=== PATIENT | male | born 1955 | race Caucasian/White ===

== ENCOUNTER 2016-12-23 12:41 | Emergency (ER) | payer MEDICARE, MEDICAID ==
[~2016-12-23] VITALS: Ht 175.3 cm; Wt 76.4 kg
[~2016-12-23 12:41] MED LIST: AMOX1TAB16 PO; RISPC50 IM; VITAD400 PO
[2016-12-23 16:05] LABS: BASOPHILS # (AUTO) 0.05 K/uL (0.00-0.20); BASOPHILS % (AUTO) 0.7 % (0.0-2.0); EOSINOPHILS # (AUTO) 0.28 K/uL (0.00-0.70); EOSINOPHILS % (AUTO) 3.68 % (1.0-6.0); HEMATOCRIT 42.4 % (41-53); HEMOGLOBIN 14.1 g/dL (13.5-17.5); LYMPHOCYTES # (AUTO) 1.1 K/uL (1.0-4.8); LYMPHOCYTES % (AUTO) 15.3 % (22.0-44.0); MEAN CORPUSCULAR HEMOGLOBIN 30.7 pg (26.0-34.0); MEAN CORPUSCULAR HGB CONC 33.2 G/dL (31.0-37.0); MEAN CORPUSCULAR VOLUME 92 fL (80-100); MONOCYTES # (AUTO) 0.4 K/uL (0.1-1.0); MONOCYTES % (AUTO) 5.4 % (2.0-9.0); NEUTROPHILS # (AUTO) 5.6 K/uL (1.8-7.7); NEUTROPHILS % (AUTO) 74.9 % (40.0-70.0); PLATELET COUNT (AUTO) 214 K/uL (150-450); RED BLOOD CELL COUNT(AUTO) 4.59 MIL/uL (4.50-5.90); RED CELL DISTRIBUTION WIDTH 14.6 % (11.5-14.5); WHITE BLOOD COUNT (AUTO) 7.5 K/uL (4.5-11.0)
[2016-12-23 16:36] LABS: ANION GAP 9 mmol/L (8-16); CALCIUM, TOTAL 8.7 mg/dL (8.8-10.5); CARBON DIOXIDE 27 mmol/L (22-29); CHLORIDE 104 mmol/L (98-107); CREATININE 0.94 mg/dL (0.60-1.30); GLOMERULAR FILTR. RATE CALC > 60 mL/min (>60); POTASSIUM 4.3 mmol/L (3.5-5.1); SODIUM SERUM 140 mmol/L (136-145); UREA NITROGEN, BLOOD 11 mg/dL (7-18)
[2016-12-23 17:05] LABS: ALANINE AMINOTRANSFERASE 47 U/L (12-78); ALBUMIN 3.6 g/dL (3.4-5.0); ASPARTATE AMINOTRANSFERASE 41 U/L (15-37); BILIRUBIN,TOTAL 0.3 mg/dL (0.1-1.0); TOTAL PROTEIN, SERUM 7.2 g/dL (6.4-8.2)
[2016-12-23] MEDS ORDERED: RisperiDONE MICROSPHERES 37.5 MG/2 ML SYRINGE IM ONE (19:45)
[2016-12-23 20:00] VITALS: BP 109/65
== END 2016-12-23 20:02 | disposition home or self-care (01) ==
LOC: EMS 12:44
DX: F20.9 Schizophrenia, unspecified (principal); F17.210 Nicotine dependence, cigarettes, uncomplicated; Z88.1 Allergy status to other antibiotic agents
CPT/HCPCS: 36415; 80053; 80307; 85025; 96372; 99284; G0480; J2794

== ENCOUNTER 2017-06-28 09:31 | Emergency (ER) | payer MEDICARE, MEDICAID ==
[~2017-06-28] VITALS: Ht 175.3 cm; Wt 77.1 kg
[~2017-06-28 09:31] MED LIST changes: -AMOX1TAB16 PO
[2017-06-28] MEDS ORDERED: RisperiDONE MICROSPHERES 50 MG/2 ML SYRINGE IM ONE (10:15)
[2017-06-28 11:22] VITALS: BP 111/67
== END 2017-06-28 11:30 | disposition home or self-care (01) ==
LOC: EEVIPCON 09:33 → EMS 09:33
DX: F20.9 Schizophrenia, unspecified (principal); F17.200 Nicotine dependence, unspecified, uncomplicated; Z88.1 Allergy status to other antibiotic agents
CPT/HCPCS: 96372; 99284; J2794

== ENCOUNTER 2017-08-11 21:00 | Emergency (ER) | payer MEDICARE, MEDICAID ==
[~2017-08-11] VITALS: Ht 175.3 cm; Wt 63.6 kg
[~2017-08-11 21:00] MED LIST changes: +RISP2TAB76 PO
[2017-08-11 22:04] LABS: ANION GAP 12 mmol/L (8-16); CARBON DIOXIDE 25 mmol/L (22-29); CHLORIDE 108 mmol/L (98-107); CREATININE 0.82 mg/dL (0.60-1.30); GLOMERULAR FILTR. RATE CALC > 60 mL/min (>60); POTASSIUM 3.4 mmol/L (3.5-5.1); SODIUM SERUM 145 mmol/L (136-145); UREA NITROGEN, BLOOD 18 mg/dL (7-18)
[2017-08-11 22:06] LABS: ALANINE AMINOTRANSFERASE 44 U/L (12-78); ALBUMIN 3.9 g/dL (3.4-5.0); ASPARTATE AMINOTRANSFERASE 42 U/L (15-37); BILIRUBIN,TOTAL 0.3 mg/dL (0.1-1.0); TOTAL PROTEIN, SERUM 7.6 g/dL (6.4-8.2)
[2017-08-11 22:09] LABS: BASOPHILS % (AUTO) 0.5 % (0.0-2.0); EOSINOPHILS % (AUTO) 4.9 % (1.0-6.0); HEMATOCRIT 42.6 % (41-53); HEMOGLOBIN 14.3 g/dL (13.5-17.5); LYMPHOCYTES # (AUTO) 1.9 K/uL (1.0-4.8); LYMPHOCYTES % (AUTO) 24.6 % (22.0-44.0); MEAN CORPUSCULAR HEMOGLOBIN 31.1 pg (26.0-34.0); MEAN CORPUSCULAR HGB CONC 33.6 G/dL (31.0-37.0); MEAN CORPUSCULAR VOLUME 92 fL (80-100); MONOCYTES # (AUTO) 0.7 K/uL (0.1-1.0); MONOCYTES % (AUTO) 8.8 % (2.0-9.0); NEUTROPHILS # (AUTO) 4.6 K/uL (1.8-7.7); NEUTROPHILS % (AUTO) 61.2 % (40.0-70.0); PLATELET COUNT (AUTO) 230 K/uL (150-450); RED BLOOD CELL COUNT(AUTO) 4.61 MIL/uL (4.50-5.90); RED CELL DISTRIBUTION WIDTH 14.7 % (11.5-14.5); WHITE BLOOD COUNT (AUTO) 7.5 K/uL (4.5-11.0)
[2017-08-12] MEDS ORDERED: POTASSIUM CHLORIDE 20 MEQ ER TABLET PO ONE (03:15)
[2017-08-12 03:28] VITALS: BP 115/63
== END 2017-08-12 03:30 | disposition home or self-care (01) ==
LOC: EMS 21:02
DX: F25.9 Schizoaffective disorder, unspecified (principal); F17.210 Nicotine dependence, cigarettes, uncomplicated; Z88.1 Allergy status to other antibiotic agents
CPT/HCPCS: 36415; 80053; 85025; 99285; G0480

== ENCOUNTER 2017-08-14 08:32 | Inpatient (IN) | payer MEDICARE, MEDICAID ==
[~2017-08-14] VITALS: Ht 180.3 cm; Wt 70.4 kg
[2017-08-14] MEDS ORDERED: HALOPERIDOL LACTATE 5 MG/ML VIAL IM ONE (11:45)
[2017-08-14] MEDS ORDERED: LORazepam 2 MG/ML VIAL IM ONE (11:45)
[2017-08-14] MEDS ORDERED: DiphenhydrAMINE HCL 50 MG/ML VIAL IM ONE (11:45)
[2017-08-14 12:01] LABS: BASOPHILS % (AUTO) 0.3 % (0.0-2.0); EOSINOPHILS % (AUTO) 1.8 % (1.0-6.0); HEMATOCRIT 41.8 % (41-53); HEMOGLOBIN 14.3 g/dL (13.5-17.5); LYMPHOCYTES % (AUTO) 16.6 % (22.0-44.0); MEAN CORPUSCULAR HEMOGLOBIN 31.5 pg (26.0-34.0); MEAN CORPUSCULAR HGB CONC 34.2 G/dL (31.0-37.0); MEAN CORPUSCULAR VOLUME 92 fL (80-100); MONOCYTES # (AUTO) 0.5 K/uL (0.1-1.0); MONOCYTES % (AUTO) 8.2 % (2.0-9.0); NEUTROPHILS # (AUTO) 4.6 K/uL (1.8-7.7); NEUTROPHILS % (AUTO) 73.1 % (40.0-70.0); PLATELET COUNT (AUTO) 219 K/uL (150-450); RED BLOOD CELL COUNT(AUTO) 4.54 MIL/uL (4.50-5.90); RED CELL DISTRIBUTION WIDTH 14.5 % (11.5-14.5); WHITE BLOOD COUNT (AUTO) 6.3 K/uL (4.5-11.0)
[2017-08-14 12:27] LABS: ALANINE AMINOTRANSFERASE 40 U/L (12-78); ALBUMIN 3.9 g/dL (3.4-5.0); ASPARTATE AMINOTRANSFERASE 28 U/L (15-37); BILIRUBIN,TOTAL 0.5 mg/dL (0.1-1.0); CALCIUM, TOTAL 8.8 mg/dL (8.8-10.5); CARBON DIOXIDE 26 mmol/L (22-29); CHLORIDE 103 mmol/L (98-107); CREATININE 0.86 mg/dL (0.60-1.30); GLOMERULAR FILTR. RATE CALC > 60 mL/min (>60); TOTAL PROTEIN, SERUM 7.4 g/dL (6.4-8.2); UREA NITROGEN, BLOOD 8 mg/dL (7-18)
[2017-08-14 12:31] LABS: ANION GAP 9 mmol/L (8-16); POTASSIUM 3.4 mmol/L (3.5-5.1); SODIUM SERUM 138 mmol/L (136-145)
[2017-08-14 16:39] VITALS: BP 112/65
[2017-08-14] MEDS: RisperiDONE 2 MG TABLET PO SCH (17:00)
[2017-08-14] MEDS ORDERED: POTASSIUM CHLORIDE 20 MEQ ER TABLET PO ONE (20:00)
[2017-08-14] MEDS ORDERED: ALBUTEROL SULFATE HFA 90 MCG/PUFF 8 GM INHALER IH PRN (21:45)
[2017-08-15 04:19] VITALS: BP 109/67
[2017-08-15] MEDS ORDERED: RisperiDONE MICROSPHERES 50 MG/2 ML SYRINGE IM SCH (09:00)
[2017-08-15] MEDS: RisperiDONE 2 MG TABLET PO SCH ×2 (09:47→16:11)
[2017-08-15 16:00] VITALS: BP 106/72
[2017-08-16 06:54] VITALS: BP 112/63
[2017-08-16 08:19] VITALS: BP 98/60
[2017-08-16 08:50] LABS: CHOL/HDL RATIO 1.9 (4.2-7.3); POTASSIUM 4.7 mmol/L (3.5-5.1); THYROID STIMULATING HORMONE 0.74 uIU/mL (0.36-3.74)
[2017-08-16] MEDS: RisperiDONE 2 MG TABLET PO SCH ×2 (09:14→16:08)
[2017-08-16 10:02] VITALS: BP 108/68
[2017-08-16] MEDS: IBUPROFEN 400 MG TABLET PO PRN (10:02)
[2017-08-16] MEDS: LORazepam 2 MG TABLET PO PRN ×2 (10:20→16:08)
[2017-08-16 16:00] VITALS: BP 124/78
[2017-08-16] MEDS: HALOPERIDOL 5 MG TABLET PO PRN (16:08)
[2017-08-17 08:00] VITALS: BP 118/68
[2017-08-17] MEDS: LORazepam 2 MG TABLET PO PRN ×3 (08:54→20:20)
[2017-08-17] MEDS: HALOPERIDOL 5 MG TABLET PO PRN ×2 (08:54→16:12)
[2017-08-17] MEDS: RisperiDONE 2 MG TABLET PO SCH ×2 (08:54→16:12)
[2017-08-17 16:00] VITALS: BP 127/78
[2017-08-17] MEDS: ZOLPIDEM TARTRATE 10 MG TABLET PO PRN (20:20)
[2017-08-17] MEDS: DiphenhydrAMINE HCL 25 MG CAPSULE PO SCH (21:00)
[2017-08-18 01:04] VITALS: BP 122/72
[2017-08-18] MEDS: RisperiDONE 3 MG TABLET PO SCH ×3 (08:29→16:11)
[2017-08-18] MEDS: LORazepam 2 MG TABLET PO PRN ×3 (08:29→18:12)
[2017-08-18 08:31] VITALS: BP 108/65
[2017-08-18 16:00] VITALS: BP 131/74
[2017-08-18] MEDS: HALOPERIDOL 5 MG TABLET PO PRN (16:11)
[2017-08-18] MEDS: DiphenhydrAMINE HCL 25 MG CAPSULE PO SCH (20:26)
[2017-08-19 06:17] VITALS: BP 126/82
[2017-08-19 08:30] VITALS: BP 104/71
[2017-08-19] MEDS: RisperiDONE 3 MG TABLET PO SCH ×2 (08:58→16:34)
[2017-08-19] MEDS: LORazepam 2 MG TABLET PO PRN ×2 (08:58→16:35)
[2017-08-19 16:20] VITALS: BP 122/75
[2017-08-19] MEDS: IBUPROFEN 400 MG TABLET PO PRN (16:34)
[2017-08-19] MEDS: HALOPERIDOL 5 MG TABLET PO PRN (16:35)
[2017-08-19] MEDS: ZOLPIDEM TARTRATE 10 MG TABLET PO PRN (20:06)
[2017-08-19] MEDS: DiphenhydrAMINE HCL 25 MG CAPSULE PO SCH (20:06)
[2017-08-20] MEDS: RisperiDONE 3 MG TABLET PO SCH ×2 (08:23→16:29)
[2017-08-20] MEDS: IBUPROFEN 400 MG TABLET PO PRN (08:28)
[2017-08-20 09:22] VITALS: BP 117/73
[2017-08-20] MEDS: LORazepam 2 MG TABLET PO PRN ×2 (11:55→16:29)
[2017-08-20] MEDS: ACETAMINOPHEN 325 MG TABLET PO PRN (14:55)
[2017-08-20 16:12] VITALS: BP 114/70
[2017-08-20] MEDS: HALOPERIDOL 5 MG TABLET PO PRN (16:29)
[2017-08-20] MEDS: DiphenhydrAMINE HCL 25 MG CAPSULE PO SCH (20:03)
[2017-08-20] MEDS: ZOLPIDEM TARTRATE 10 MG TABLET PO PRN (20:04)
[2017-08-21 03:36] VITALS: BP 105/58
[2017-08-21 08:24] VITALS: BP 110/64
[2017-08-21] MEDS: LORazepam 2 MG TABLET PO PRN ×3 (08:39→16:02)
[2017-08-21] MEDS: RisperiDONE 3 MG TABLET PO SCH ×2 (08:39→16:02)
[2017-08-21] MEDS: HALOPERIDOL 5 MG TABLET PO PRN ×2 (12:00→16:02)
[2017-08-21 16:00] VITALS: BP 123/81
[2017-08-21] MEDS: IBUPROFEN 400 MG TABLET PO PRN (16:02)
[2017-08-21] MEDS: DiphenhydrAMINE HCL 25 MG CAPSULE PO SCH (20:36)
[2017-08-22 04:16] VITALS: BP 115/60
[2017-08-22] MEDS: LORazepam 2 MG TABLET PO PRN ×3 (06:21→16:22)
[2017-08-22] MEDS: RisperiDONE 3 MG TABLET PO SCH ×2 (08:32→16:22)
[2017-08-22] MEDS: HALOPERIDOL 5 MG TABLET PO PRN ×2 (08:33→16:22)
[2017-08-22 08:34] VITALS: BP 118/75
[2017-08-22 16:20] VITALS: BP 134/87
[2017-08-22] MEDS: IBUPROFEN 400 MG TABLET PO PRN (16:22)
[2017-08-22] MEDS: DiphenhydrAMINE HCL 25 MG CAPSULE PO SCH (20:16)
[2017-08-23 02:19] VITALS: BP 113/72
[2017-08-23 06:55] VITALS: BP 124/77
[2017-08-23] MEDS: IBUPROFEN 400 MG TABLET PO PRN (07:06)
[2017-08-23 08:10] VITALS: BP 128/73
[2017-08-23] MEDS: RisperiDONE 3 MG TABLET PO SCH ×2 (08:13→16:12)
[2017-08-23] MEDS: LORazepam 2 MG TABLET PO PRN ×3 (08:32→13:08)
[2017-08-23] MEDS: ACETAMINOPHEN 325 MG TABLET PO PRN (12:15)
[2017-08-23] MEDS ORDERED: DIPH50 PO (15:53)
[2017-08-23] MEDS ORDERED: RISP3 PO (15:56)
== END 2017-08-23 16:50 | disposition left against medical advice (07) | DRG 885 ==
LOC: EMS 08:35 → B3A 14:51
PROVIDERS: ADMIT Psychiatry & Neurology Psychiatry; ATTEND Psychiatry & Neurology Psychiatry
DX: F20.1 Disorganized schizophrenia (principal); I95.9 Hypotension, unspecified; Z59.0 Homelessness; E55.9 Vitamin D deficiency, unspecified; B18.2 Chronic viral hepatitis C; F14.90 Cocaine use, unspecified, uncomplicated; F17.200 Nicotine dependence, unspecified, uncomplicated; J44.9 Chronic obstructive pulmonary disease, unspecified; M19.90 Unspecified osteoarthritis, unspecified site; Z79.899 Other long term (current) drug therapy; Z88.1 Allergy status to other antibiotic agents; Z71.6 Tobacco abuse counseling; E87.6 Hypokalemia; Z53.21 Procedure and treatment not carried out due to patient leaving prior to being seen by health care provider
CPT/HCPCS: 84132; 84436; 84439; 84443; 87081; 96372; 99285; G0480; J1200; J1630; J2060; J2794

== ENCOUNTER 2017-08-31 18:23 | Emergency (ER) | payer MEDICARE, MEDICAID ==
[~2017-08-31] VITALS: Ht 175.3 cm; Wt 76.8 kg
[~2017-08-31 18:23] MED LIST changes: +DIPH50 PO; -RISP2TAB76 PO; +RISP3 PO; -VITAD400 PO
[2017-08-31 19:23] LABS: BASOPHILS # (AUTO) 0.02 K/uL (0.00-0.20); BASOPHILS % (AUTO) 0.2 % (0.0-2.0); EOSINOPHILS # (AUTO) 0.32 K/uL (0.00-0.70); EOSINOPHILS % (AUTO) 3.69 % (1.0-6.0); HEMOGLOBIN 13.4 g/dL (13.5-17.5); LYMPHOCYTES # (AUTO) 1.1 K/uL (1.0-4.8); LYMPHOCYTES % (AUTO) 12.4 % (22.0-44.0); MEAN CORPUSCULAR HGB CONC 33.5 G/dL (31.0-37.0); MEAN CORPUSCULAR VOLUME 93 fL (80-100); MONOCYTES # (AUTO) 0.4 K/uL (0.1-1.0); MONOCYTES % (AUTO) 4.9 % (2.0-9.0); NEUTROPHILS # (AUTO) 6.9 K/uL (1.8-7.7); NEUTROPHILS % (AUTO) 78.8 % (40.0-70.0); PLATELET COUNT (AUTO) 206 K/uL (150-450); RED BLOOD CELL COUNT(AUTO) 4.33 MIL/uL (4.50-5.90); RED CELL DISTRIBUTION WIDTH 15.4 % (11.5-14.5); WHITE BLOOD COUNT (AUTO) 8.7 K/uL (4.5-11.0)
[2017-08-31 19:31] LABS: ANION GAP 8 mmol/L (8-16); CALCIUM, TOTAL 8.5 mg/dL (8.8-10.5); CARBON DIOXIDE 28 mmol/L (22-29); CHLORIDE 107 mmol/L (98-107); CREATININE 1.05 mg/dL (0.60-1.30); GLOMERULAR FILTR. RATE CALC > 60 mL/min (>60); POTASSIUM 3.8 mmol/L (3.5-5.1); SODIUM SERUM 143 mmol/L (136-145); UREA NITROGEN, BLOOD 19 mg/dL (7-18)
[2017-08-31 19:38] LABS: ALANINE AMINOTRANSFERASE 30 U/L (12-78); ALBUMIN 3.3 g/dL (3.4-5.0); ASPARTATE AMINOTRANSFERASE 24 U/L (15-37); BILIRUBIN,TOTAL 0.2 mg/dL (0.1-1.0); TOTAL PROTEIN, SERUM 6.5 g/dL (6.4-8.2)
[2017-08-31 19:44] VITALS: BP 115/78
== END 2017-08-31 19:46 | disposition home or self-care (01) ==
LOC: EMS 18:24
DX: F25.9 Schizoaffective disorder, unspecified (principal); F07.0 Personality change due to known physiological condition; F17.210 Nicotine dependence, cigarettes, uncomplicated; Z88.1 Allergy status to other antibiotic agents
CPT/HCPCS: 36415; 80053; 85025; 99284; G0480

== ENCOUNTER 2025-06-26 10:37 | Inpatient (IN) | payer MEDICAID, MEDICARE, OTHER ==
[~2025-06-26] VITALS: Ht 182.9 cm; Wt 86.4 kg
[~2025-06-26 10:37] MED LIST changes: -RISP3 PO; +RISP3TAB35 PO
[2025-06-26] MEDS ORDERED: OxyCODONE HCL/ACETAMINOPHEN 5-325 MG TABLET PO PRN (12:00)
[2025-06-26] MEDS ORDERED: ACETAMINOPHEN 325 MG TABLET PO PRN (12:00)
[2025-06-26] MEDS ORDERED: ZOLPIDEM TARTRATE 5 MG TABLET PO PRN (12:00)
[2025-06-26] MEDS ORDERED: ONDANSETRON HCL 4 MG/2 ML VIAL IVP PRN (12:00)
[2025-06-26] MEDS ORDERED: MAGNESIUM HYDROXIDE SUSPENSION 30 ML UDCUP PO PRN (12:00)
[2025-06-26] MEDS: PIPERACILLIN/TAZO 3.375 GM/D5W 50 ML IV ONE (12:31)
[2025-06-26 14:06] VITALS: RESP 18
[2025-06-26] MEDS: HEPARIN SODIUM,PORCINE 5,000 UNITS/ML VIAL SQ SCH (15:27)
[2025-06-26] MEDS: FAMOTIDINE 20 MG TABLET PO SCH (20:31)
[2025-06-26] MEDS: DOCUSATE SODIUM 100 MG CAPSULE PO SCH (20:31)
[2025-06-28 19:54] VITALS: BP 128/91; PULSE 78; RESP 20; TEMP 98.1; O2SAT 98
[2025-06-29 04:37] VITALS: BP 114/88; PULSE 72; RESP 20; TEMP 98.1; O2SAT 96
[2025-06-29 08:40] VITALS: BP 132/86; PULSE 71; RESP 20; TEMP 97.8; O2SAT 98
[2025-06-29] MEDS ORDERED: DOCU-385 PO (09:57)
[2025-06-29] MEDS ORDERED: FAMO20 PO (09:57)
[2025-06-29] MEDS ORDERED: ACET-2247 PO (09:58)
[2025-06-29] MEDS ORDERED: MAGN-169 PO (09:59)
[2025-06-29] MEDS ORDERED: HALO100V36 IM (09:59)
== END 2025-06-29 10:35 | DRG 178 ==
LOC: EMS 10:40 → EDH 11:53 → 6S 13:44
PROVIDERS: ADMIT Internal Medicine; ATTEND Internal Medicine
PROC: GZ56ZZZ Individual Psychotherapy, Supportive (ICD-10-PCS; 2025-06-27)
PROC: GZ58ZZZ Individual Psychotherapy, Cognitive-Behavioral (ICD-10-PCS; 2025-06-27)
PROC: GZ52ZZZ Individual Psychotherapy, Cognitive (ICD-10-PCS; principal; 2025-06-28)
DX: J86.9 Pyothorax without fistula (principal); G93.40 Encephalopathy, unspecified; J90 Pleural effusion, not elsewhere classified; F20.9 Schizophrenia, unspecified; J44.9 Chronic obstructive pulmonary disease, unspecified; R59.1 Generalized enlarged lymph nodes; Z91.199 Patient's noncompliance with other medical treatment and regimen due to unspecified reason; Z88.1 Allergy status to other antibiotic agents; Z87.891 Personal history of nicotine dependence
CPT/HCPCS: 99285; J1631; J1644

== ENCOUNTER 2025-06-30 16:32 | Inpatient (IN) | payer OTHER ==
[~2025-06-30] VITALS: Ht 182.9 cm; Wt 86.4 kg
[~2025-06-30 16:32] MED LIST changes: +ACET-2247 PO; -DIPH50 PO; +DOCU-385 PO; +FAMO20 PO; +HALO100V36 IM; +MAGN-169 PO; -RISP3TAB35 PO; -RISPC50 IM
[2025-06-30 17:21] LABS: PLATELET COUNT (AUTO) 402 K/uL (150-450); RED BLOOD CELL COUNT(AUTO) 4.19 MIL/uL (4.50-5.90); RED CELL DISTRIBUTION WIDTH 22.3 % (11.5-14.5); WHITE BLOOD COUNT (AUTO) 4.5 K/uL (4.5-11.0)
[2025-06-30 17:28] LABS: CALCIUM, TOTAL 8.9 mg/dL (8.8-10.5); CREATININE 0.76 mg/dL (0.60-1.30); GLOMERULAR FILTR. RATE CALC > 60 mL/min (>60); GLUCOSE,RANDOM 109 mg/dL (70-110); SODIUM SERUM 139 mmol/L (136-145); UREA NITROGEN, BLOOD 22 mg/dL (7-18)
[2025-06-30 17:36] LABS: TROPONIN I-HIGH SENSITIVITY 10 ng/L (<76)
[2025-06-30 17:38] LABS: LACTIC ACID 0.6 mmol/L (0.4-2.0)
[2025-06-30] MEDS ORDERED: ACETAMINOPHEN 325 MG TABLET PO PRN (21:30)
[2025-06-30] MEDS ORDERED: ZOLPIDEM TARTRATE 5 MG TABLET PO PRN (21:30)
[2025-06-30] MEDS ORDERED: MAGNESIUM HYDROXIDE SUSPENSION 30 ML UDCUP PO PRN (21:30)
[2025-06-30] MEDS: PIPERACILLIN/TAZO 3.375 GM/D5W 50 ML IV SCH (21:35)
[2025-06-30 23:17] VITALS: BP 112/73; PULSE 82; RESP 18; TEMP 97.5; O2SAT 97
[2025-06-30] MEDS ORDERED: SODIUM CHLORIDE 0.9% 500 ML IV ONE (23:24)
[2025-07-01 03:36] VITALS: BP 132/84; PULSE 79; RESP 19; TEMP 98.8; O2SAT 96
[2025-07-01 08:13] VITALS: BP 125/76; PULSE 76; RESP 18; TEMP 98.4; O2SAT 99
[2025-07-01 19:59] VITALS: BP 105/67; PULSE 82; RESP 17; TEMP 97.3; O2SAT 96
[2025-07-02 05:03] VITALS: BP 110/79; PULSE 72; RESP 16; TEMP 97.9; O2SAT 98
[2025-07-02 08:27] VITALS: BP 100/73; PULSE 72; RESP 20; TEMP 97.2; O2SAT 98
[2025-07-02] MEDS ORDERED: ONDANSETRON HCL 4 MG/2 ML VIAL IVP PRN (16:15)
[2025-07-02] MEDS ORDERED: MAGNESIUM HYDROXIDE SUSPENSION 30 ML UDCUP PO PRN (16:15)
[2025-07-02] MEDS ORDERED: ACETAMINOPHEN 325 MG TABLET PO PRN (16:15)
[2025-07-02] MEDS ORDERED: IPRATROPIUM BROMIDE 0.5 MG/2.5 ML NEB SOLUTION NEB PRN (16:15)
[2025-07-02] MEDS ORDERED: BISACODYL 10 MG RECTAL RECTAL SUPPOSITORY PR PRN (16:15)
[2025-07-02] MEDS ORDERED: ALBUTEROL SULFATE 2.5 MG/0.5 ML NEB SOLUTION NEB PRN (16:15)
[2025-07-02] MEDS ORDERED: ZOLPIDEM TARTRATE 5 MG TABLET PO PRN (16:15)
[2025-07-02] MEDS: PIPERACILLIN/TAZO 3.375 GM/D5W 50 ML IV SCH (17:21)
[2025-07-02] MEDS ORDERED: SODIUM CHLORIDE 0.9% 250 ML IV ONE (17:23)
[2025-07-02 19:37] VITALS: BP 98/69; PULSE 73; RESP 17; TEMP 97.7; O2SAT 98
[2025-07-02] MEDS: HEPARIN SODIUM,PORCINE 5,000 UNITS/ML VIAL SQ SCH (23:20)
[2025-07-03 04:55] VITALS: BP 100/66; PULSE 70; RESP 18; TEMP 97.8; O2SAT 96
[2025-07-03 08:30] VITALS: BP 102/64; PULSE 76; RESP 18; TEMP 98.2; O2SAT 98
[2025-07-03] MEDS: DOCUSATE SODIUM 100 MG/10 ML LIQUID UDCUP PO SCH (08:43)
[2025-07-03] MEDS ORDERED: AMOX-457 PO (10:48)
== END 2025-07-03 14:50 | DRG 177 ==
LOC: EMS 16:32 → EDH 21:22 → 6S 22:34
PROVIDERS: ADMIT Internal Medicine; ATTEND Internal Medicine
DX: J69.0 Pneumonitis due to inhalation of food and vomit (principal); J86.9 Pyothorax without fistula; R91.1 Solitary pulmonary nodule; F17.210 Nicotine dependence, cigarettes, uncomplicated; F25.9 Schizoaffective disorder, unspecified; Z88.1 Allergy status to other antibiotic agents
CPT/HCPCS: 71045; 71250; 80048; 83605; 83880; 84484; 85025; 87040; 93005; 99285; J1644; J2543; J7040; J7050; 36415-L1; 36415-TC